=== PATIENT | female | born 1995 | race Caucasian/White ===

== ENCOUNTER 2017-11-17 10:04 | Emergency (ER) | payer SELFPAY ==
[~2017-11-17] VITALS: Ht 160 cm; Wt 70.0 kg
[2017-11-17 13:05] VITALS: BP 113/57
== END 2017-11-17 14:03 | disposition home or self-care (01) ==
LOC: ER 10:34
DX: H60.501 Unspecified acute noninfective otitis externa, right ear (principal)
CPT/HCPCS: 99283